=== PATIENT | female | born 1940 | race Two or more races ===

== ENCOUNTER 2017-07-25 22:12 | Emergency (ER) | payer OTHER, MEDICAID ==
--- NOTE | 2017-07-25 22:29 | EDPHY ---
H & P HPI/ROS: HPI CHIEF COMPLAINT: Mechanical fall head injury HISTORY OF PRESENT ILLNESS: Patient very pleasant 77-year-old female significant past medical history for hypertension, not on any anticoagulation she presents emergency room after she fell at school gymnasium this evening. She has tried to hold onto a railing the railing was wobbly. She took a mechanical trip and fall. She hit her head. No LOC. She denies any significant neck pain or headache. Denies double vision or vomiting denies focal weakness numbness or tingling. She has a left forehead hematoma present. Tetanus shot is up-to-date. Past Medical History: Hypertension Past Surgical History: No recent surgery Social History: Denies daily use of drugs alcohol tobacco products or being on blood thinners. Family History: Noncontributory ROS REVIEW OF SYSTEMS: A comprehensive 10 point review of systems is otherwise negative aside from elements mentioned in the history of present illness. Exam Constitutional appears well nontoxic, GCS 15, alert or x4, triage nursing summary reviewed, vital signs reviewed, awake/alert. Eyes normal conjunctivae and sclera, EOMI, PERRLA. HENT head/neck: Abrasion to left forehead with overlying hematoma, no laceration, neck midline no tenderness to palpation, no step-offs or crepitus, normal inspection, atraumatic, moist mucus membranes, no epistaxis, neck supple / no meningismus, no raccoon eyes. Respiratory clear to auscultation bilaterally, normal breath sounds, no respiratory distress, no wheezing. Cardiovascular rate normal, regular rhythm, no murmur, no edema, distal pulses normal. Gastrointestinal soft, non-tender, no rebound, no guarding, normal bowel sounds, no distension, no pulsatile mass. Genitourinary no CVA tenderness. Musculoskeletal no midline vertebral tenderness, full range of motion, no calf swelling, no tenderness of extremities, no meningismus, good pulses, neurovascularly intact. Skin skin tear left elbow, pink, warm, & dry, no rash Neurologic awake, alert and oriented x 3, AAOx3, moves all 4 extremities equally, motor intact, sensory intact, CN II-XII intact, normal cerebellar, normal vision, normal speech. Psychiatric normal mood/affect. Heme/Lymph/Immune no lymphadenopathy. Differential Diagnosis: Includes but is not limited to in a particular order closed-head injury, intracranial bleed, skull fracture, closed head trauma, concussion, skin tear Medical Decision Making: Plan for this patient CT head without contrast rule out significant intracranial trauma. Specifically rule out skull fracture brain bleed. Rule out subdural epidural. Re-evaluation: 2243: This patient appears well nontoxic in no acute distress neurological exam is unremarkable. She is resting comfortably. Skin tear be dressed. She will receive a CT scan of her head without contrast for trauma. She has no complaints at this time and she has a normal neurological exam. CT scan head without contrast is unremarkable I will allow her to go home. Return precautions will be given. This includes return if worsening headache, vomiting or family does not feel that she is acting right. CT scan of the head without IV contrast. The results of the study are negative for acute traumatic injury specifically no intracranial bleed skull fracture subdural epidural, there is a soft tissue injury with hematoma present. The study was read by Dr. Xavier. I viewed the images myself on the PACS system. Patient family understand return emergency room if there is any worsening symptoms questions or concerns. Source: Patient Constitutional: Initial Vital Signs Temperature (C) 36.7 C 07/25/17 22:34 Heart Rate 79 07/25/17 22:34 Respiratory Rate 16 07/25/17 22:34 Blood Pressure 177/65 H 07/25/17 22:34 O2 Sat (%) 94 07/25/17 22:34 O2 Delivery Mode Room Air Allergies/Adverse Reactions: No Known Allergies Allergy (Unverified 07/25/17 22:33) Home Medications: Medication Instructions Recorded Fosamax 35 MG 07/25/17 Lisinopril 07/25/17 Metformin HCl 07/25/17 Departure - Departure Disposition: Home, Routine, Self-Care Clinical Impression: Skin tear Head injury Qualifiers: Encounter type: initial encounter Qualified Code(s): S09.90XA - Unspecified injury of head, initial encounter Condition: Good Instructions: Concussion (ED), Head Injury (ED), Skin Tear (ED) Additional Instructions: 1. Return to the emergency room if you have worsening headache vomiting questions or concerns.
[2017-07-25 22:39] VITALS: RESP 16; TEMP 98.1
[2017-07-25 23:56] VITALS: BP 168/72; PULSE 82; O2SAT 93
== END 2017-07-25 23:48 | disposition home or self-care (01) ==
LOC: CED 22:12
DX: S00.81XA Abrasion of other part of head, initial encounter (principal); S51.012A Laceration without foreign body of left elbow, initial encounter; I10 Essential (primary) hypertension; W01.198A Fall on same level from slipping, tripping and stumbling with subsequent striking against other object, initial encounter; Y92.218 Other school as the place of occurrence of the external cause
CPT/HCPCS: 70450-PO